=== PATIENT | female | born 2000 | race Caucasian/White ===

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

== ENCOUNTER → 2021-01-13 | Outpatient (CLI) | payer OTHER ==
[~2021-01-13] MED LIST: NORCO 325 MG-51 TAB PO
== END ==
LOC: COL.RAD 14:17
DX: N13.30 Unspecified hydronephrosis (principal); N39.41 Urge incontinence